=== PATIENT | male | born 1985 | race Caucasian/White ===

== ENCOUNTER 2016-06-05 14:55 | Emergency (ER) | payer OTHER ==
[~2016-06-05] VITALS: Ht 170.2 cm; Wt 81.6 kg
[~2016-06-05 14:55] MED LIST: ACULAR 0.5%5 ML OS; ALBUTEROL0.09 MG/A1 INH; POLYTRIM O200 GTT/BO OPH; PREDNISONE10 MG PO; TESSALON PERLE100 MG PO; ZOFRAN ODT4 M1 SL
--- NOTE | 2016-06-05 16:03 | ED GENERAL ADULT ---
History of Present Illness General Chief Complaint: Nausea, Vomiting, Diarrhea Stated Complaint: N/V/D, BALL Source: patient Exam Limitations: no limitations Vital Signs & Intake/Output Vital Signs & Intake/Output Vital Signs Date Time Temp Pulse Resp B/P Pulse O2 O2 Flow FiO2 Ox Delivery Rate 06/05 1607 85 120/65 06/05 1540 98 06/05 1458 97.5 87 18 136/80 99 Room Air Room Air ED Intake and Output 06/06 0000 06/05 1200 Intake Total Output Total Balance Patient 180 lb Weight Allergies Coded Allergies: morphine (Intermediate, GI DISTRESS 06/05/16) Reconcile Medications Ketorolac Tromethamine (Acular 0.5%) 0.5 % DROPS 1 GTT OS 4 TIMES/DAY PRN EYE PAIN Ondansetron (Zofran Odt) 4 MG TAB.RAPDIS 1 TAB SL TID PRN NAUSEA Polytrim (Polytrim Eye Drops) 10,000 UNIT-1 MG/ML DROPS 1 DROP OPH 4 TIMES/DAY CORNEAL ABRASION Triage Note: TRIAGE: 31 Y/O MALE PRESENTS C/O +N/+V/+D AND HEADACHE SICNE YESTERDAY. DENIES SICK CONTACTS. REPORTS POOR PO INTAKE. AFEBRILE IN TRIAGE. Triage Nurses Notes Reviewed? yes HPI: 31-year-old male ambulatory through triage to room 6 for evaluation of cough. He reports he has been coughing when he gets into work which then makes him nauseous and started to vomit. He denies any abdominal pain, fever, chills, chest pain or shortness of breath. He reports he is a smoker but every time he walks into work he has a coughing fit. He has not vomited today but vomited yesterday. He denies any pain at this time. He reports really what he wants is a work note. (YOLI NUÑEZ APRN) Past History Travel History Traveled to [place] past 21 day No Medical History Any Pertinent Medical History? 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 No (YOLI NUÑEZ APRN) Review of Systems Review of Systems Constitutional: Denies: no symptoms. EENTM: Denies: no symptoms. Respiratory: Reports: cough, sputum production. Cardiovascular: Denies: no symptoms. GI: Reports: nausea, vomiting. Genitourinary: Denies: no symptoms. Musculoskeletal: Denies: no symptoms. Skin: Denies: no symptoms. Neurological/Psychological: Denies: no symptoms. Hematologic/Endocrine: Denies: no symptoms. Immunologic/Allergic: Denies: no symptoms. (YOLI NUÑZE APRN) Physical Exam Physical Exam General Appearance: well developed/nourished, no apparent distress, alert, comfortable Head: atraumatic, normal appearance Eyes: Bilateral: normal appearance, PERRL, EOMI. Ears, Nose, Throat: normal pharynx, normal ENT inspection Neck: normal inspection, supple, full range of motion Respiratory: wheezing Cardiovascular: regular rate/rhythm Peripheral Pulses: 2+ radial (R), 2+ radial (L) Gastrointestinal: normal bowel sounds, soft, non-tender Back: normal inspection, normal range of motion Extremities: normal inspection, normal capillary refill, normal range of motion, no edema Neurologic/Psych: no motor/sensory deficits, awake, alert, oriented x 3, normal gait, normal mood/affect Skin: intact, normal color, warm/dry Core Measures ACS in differential dx? No CVA/TIA Diagnosis: No Severe Sepsis Present: No Septic Shock Present: No (YOLI NUÑEZ APRN) Progress Differential Diagnoses I considered the following diagnoses in my evaluation of the patient: URI, environmental allergy- ultimately the patient just wanted a work note. Plan of Care: Current Medications Sig/Karyn Start time Last Medication Dose Stop Time Status Admin Sodium Chloride 1,000 ML BOLUS ONE 06/05 1530 CAN (Normal Saline 0.9%) 06/05 1629 Laboratory Tests 06/05/16 1521: Lipase Cancelled, CBC w Diff Cancelled, WBC Cancelled, RBC Cancelled, Hgb Cancelled, Hct Cancelled, MCV Cancelled, MCH Cancelled, RDW Cancelled, Plt Count Cancelled, MPV Cancelled, PUBS MCHC Cancelled, Urine Color Cancelled, Urine Clarity Cancelled, Urine pH Cancelled, Ur Specific [place] Cancelled, Urine Protein Cancelled, Urine Ketones Cancelled, Urine Nitrite Cancelled, Urine Bilirubin Cancelled, Urine Urobilinogen Cancelled, Ur Leukocyte Esterase Cancelled, Ur Microscopic Cancelled, Urine Hemoglobin Cancelled, Urine Glucose Cancelled Initial ED EKG: none Comments: 1 DuoNeb given but the patient didn't even want that. He refused blood work and IV fluids. He will be discharged home with work note. He will follow up with [facility] or PCP- Dr. Tolliver. (YOLI NUÑEZ APRN) Departure Departure Time of Disposition: 1601 Disposition: HOME OR SELF CARE Condition: Stable Clinical Impression Primary Impression: Cough Secondary Impressions: Nausea Referrals: MERY TOLLIVER MD Additional Instructions: Please day out of work for the next 2 days. Wheeze follow-up with primary care doctor next week if you continue to have nausea, vomiting, cough. Please return to the emergency department for any worsening or concerning symptoms. please stop smoking. Departure Forms: Customer Survey General Discharge Information (YOLI NUÑEZ APRN) PA/MOTION PICTURE ACTOR Co-Sign Statement Statement: ED Attending supervision documentation- [] I saw and evaluated the patient. I have also reviewed all the pertinent lab results and diagnostic results. I agree with the findings and the plan of care as documented in the PA's/MOTION PICTURE ACTOR's documentation. X I have reviewed the ED Record and agree with the PA's/MOTION PICTURE ACTOR's documentation. [] Additions or exceptions (if any) to the PAs/MOTION PICTURE ACTOR's note and plan are summarized below: [] (KELSIE SANTOS MD) Critical Care Note Critical Care Note Critical Care Time: non-applicable (YOLI NUÑEZ APRN)
[2016-06-05 16:07] VITALS: BP 120/65
== END 2016-06-05 16:09 ==
LOC: ERH 14:55
DX: R05 Cough (principal); R11.0 Nausea
CPT/HCPCS: 1263

== ENCOUNTER 2016-06-23 11:53 | Emergency (ER) | payer OTHER ==
[~2016-06-23] VITALS: Ht 170.2 cm; Wt 81.6 kg
[2016-06-23 11:57] VITALS: BP 180/100
--- NOTE | 2016-06-23 12:00 | ED DYSPNEA/ASTHMA COMPLAINT ---
History of Present Illness General Chief Complaint: General Adult Stated Complaint: COUGH,BURNING SENSATION IN CHEST Source: patient, old records Exam Limitations: no limitations Vital Signs & Intake/Output Vital Signs & Intake/Output Vital Signs Date Time Temp Pulse Resp B/P B/P Pulse O2 O2 Flow FiO2 Mean Ox Delivery Rate 06/23 1242 95 Room Air 06/23 1220 96 06/23 1157 98.4 120 20 180/100 99 Room Air Allergies Coded Allergies: morphine (Intermediate, GI DISTRESS 06/05/16) Reconcile Medications Albuterol Sulfate (Proair Hfa) 90 MCG HFA.AER.AD 2 PUF INH Q4-6 PRN PRN SHORTENSS OF BREATH Azithromycin (Zithromax) 250 MG TABLET 1 DP PO AD BRONCHITIS 2 the first day followed by 1 for days 2-5 Triage Note: C/O COUGH, FATIGUE, CHEST BURNING X 3 WEEKS. Triage Nurses Notes Reviewed? yes Onset: Gradual Duration: week(s): (3), constant Timing: recent history Severity: mild, moderate Prior Episodes/Possible Cause: occasional episodes Associated Symptoms: cough HPI: 31-year-old male active smoker presents emergency room complaining of a nonproductive cough associated chest burning that is nonradiating and only present after coughing for the past 3 weeks. Patient states it was seen here on the symptoms began and was given a DuoNeb which improved. The patient denies fever chills night sweats.. He denies sputum production hemoptysis abdominal pain nausea vomiting diarrhea. No back pain recent immobility or travel or leg swelling. No modifying factors or associated symptoms otherwise. He has not sought care for the symptoms until today (ZAINA DILLARD) Past History Travel History Traveled to [place] past 21 day No Medical History Any Pertinent Medical History? 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 No (ZAINA DILLARD) Review of Systems Review of Systems Constitutional: Reports: see HPI. All Other Systems: Reviewed and Negative Comments Review of systems: See HPI, All other systems negative. Constitutional, no chills no fever, no malaise no weight loss HEENT: No visual changes no sore throat congestion, no ear pain Cardiovascular: chest pain , no palpitation , no orthopnea Skin: no rashes, no change in skin Respiratory: No dyspnea cough no sputum no hemoptysis GI: No nausea no vomiting, no diarrhea, no bloating/constipation : No dysuria Muscle skeletal: No joint pain no back pain, no neck pain, Neurologic: No numbness, no headache Psych: No stress Heme/endocrine: No bruising no bleeding Immunology: No lymphadenopathy (ZAINA DILLARD) Physical Exam Physical Exam General Appearance: well developed/nourished, no apparent distress, alert, awake Respiratory: normal breath sounds Comments: Well-developed well-nourished person in no acute distress Head/Face: Atraumatic, no maxillary/frontal sinus tenderness, no facial swelling Eyes: PERRL, EOMI, no conjunctival injection. No nystagmus Ear:External auditory canal and Tympanic membranes clear, no erythema, no FB. Nose: atraumatic.Normal inspection: No bleeding, no septal hematoma Throat: Moist mucous membranes.Pharynx normal. No pharyngeal erythema/exudate seen. No stridor/drooling or assymetry. No swelling or edema. Neck: Supple, no lymphadenopathy, FROM Back: Nontender, Full range of motion Cardiovascular: Regular rate and rhythms no murmurs rubs Respiratory: Chest nontender.There were no bony deformities, no asymmetry. No respiratory distress. Patient speaking in full complete sentences. Breath sounds clear to auscultation bilaterally: NO W/R/R Abdomen: Soft, nontender nondistended, no appreciable organomegaly. Normal bowel sounds. No rebound/guarding, Extremity: No edema, full range of motion of extremities Neuro: Alert oriented x3, motor sensory normal There were no obvious focal neurologic abnormalities. Skin: No appreciable rash on exposed skin, skin is warm and dry. Psych: Mood and affect is normal, memory and judgment is normal. Core Measures ACS in differential dx? No Severe Sepsis Present: No Septic Shock Present: No (ZAINA DILLARD) Progress Differential Diagnosis: asthma, bronchitis, costochondritis, musculoskeletal pain, pericarditis, pulmonary embolism, pneumonia, pneumothorax, VIRAL SYNDROME, ELECTROLYTE ABNORMALITY, MALIGNANCY Plan of Care: Orders Procedure Date/time Status AEROSOL (GEN) 06/23 1227 Complete EKG 06/23 1200 Active DuoNeb ordered the patient is refusing blood work chest x-ray, old records reviewed the patient had a similar response during his last visit here earlier this June. I attempted to reason with the patient given his symptoms have been persistent to rule out any other pathology causing these episodes. Patient is noted to be tachycardic, smoking cessation was discussed by considered pulmonary embolism in my differential however the burning chest discomfort is only present after coughing there is no pain with inspiration no hemoptysis no fever chills weight loss diaphoresis On repeat eval pt reports sx improved wtih duoneb Prescription for pro-air inhaler see pack provided, I discussed with him to return immediately if he changes his mind and wishes to be properly evaluated And information is provided follow-up with primary care (ZAINA DILLARD) Initial ED EKG: SINUS TACH AT 110, NO ACUTE st SEGMENT CHANGES NORMAL AXIS Prior EKG: unchanged (10/2007) (ZAINA DILLARD) Departure Departure Disposition: HOME OR SELF CARE Condition: Stable Clinical Impression Primary Impression: Bronchitis Referrals: FABIOLA POPE DO PATIENT HAS NO PRIMARY CARE DR (PCP/Family) Additional Instructions: Pro-air inhaler, Z-Vladimir as directed. These were sent to [facility]. Follow- up with primary care physician Dr. Noe morrison. Return to ER anytime sooner with any concerns Departure Forms: Customer Survey General Discharge Information Prescriptions: Current Visit Scripts Albuterol Sulfate (Proair Hfa) 2 PUF INH Q4-6 PRN PRN SHORTENSS OF BREATH #1 INHAL Azithromycin (Zithromax) 1 DP PO AD #6 TAB 2 the first day followed by 1 for days 2-5 (ZAINA DILLARD) PA/ASSISTANT MERCHANDISE MANAGER Co-Sign Statement Statement: ED Attending supervision documentation- [] I saw and evaluated the patient. I have also reviewed all the pertinent lab results and diagnostic results. I agree with the findings and the plan of care as documented in the PA's/ASSISTANT MERCHANDISE MANAGER's documentation. [X] I have reviewed the ED Record and agree with the PA's/ASSISTANT MERCHANDISE MANAGER's documentation. [] Additions or exceptions (if any) to the PAs/ASSISTANT MERCHANDISE MANAGER's note and plan are summarized below: [] (FERNANDO BOSWELL,RAMIRO Castellon) Critical Care Note Critical Care Note Critical Care Time: non-applicable (MADY MITCHELL,ZAINA)
[2016-06-23] MEDS ORDERED: PROAIR HFA8.5 GM INH (12:21)
[2016-06-23] MEDS ORDERED: ZITHROMAX250 M2 PO (12:21)
== END 2016-06-23 12:47 ==
LOC: ERH 11:53
DX: J40 Bronchitis, not specified as acute or chronic (principal); R07.89 Other chest pain; F17.210 Nicotine dependence, cigarettes, uncomplicated
CPT/HCPCS: 1263; 93005; 93010

== ENCOUNTER 2016-07-19 14:28 | Emergency (ER) | payer OTHER ==
[~2016-07-19] VITALS: Ht 170.2 cm; Wt 81.6 kg
[~2016-07-19 14:28] MED LIST changes: +PROAIR HFA8.5 GM INH; +ZITHROMAX250 M2 PO
[2016-07-19 14:37] VITALS: BP 141/93
--- NOTE | 2016-07-19 15:30 | ED THROAT/DENTAL COMPLAINT ---
History of Present Illness General Chief Complaint: Sore Throat, Dental Pain Stated Complaint: TOOTH ACHE Source: patient, old records Exam Limitations: no limitations Vital Signs & Intake/Output Vital Signs & Intake/Output Vital Signs Date Time Temp Pulse Resp B/P B/P Pulse O2 O2 Flow FiO2 Mean Ox Delivery Rate 07/19 1437 97.9 92 14 141/93 100 Room Air Allergies Coded Allergies: morphine (Intermediate, GI DISTRESS 06/05/16) Reconcile Medications Tylenol With Codeine (Tylenol With Codeine #3 Tablet) 300 MG-30 MG TABLET 1 TAB PO BIDP PRN pain Triage Note: 31 Y/O MALE C/O DENTAL PAIN RELATED TO BROKEN TOOTH; HAS TAKE 2 DOSES IBUPROPHEN (800MG EACH) WITH NO RELIEF. HAS APPT WITH DENTIST TUE. Triage Nurses Notes Reviewed? yes Onset: Gradual Duration: week(s): (1), constant Timing: recent history Injury Environment: home Severity: moderate Severity Numbers: 7 Modifying Factors: Worsens With: eating. Associated Symptoms: DENIES HPI: 31-year-old male presents to the ER complaining of left lower dental pain after he states she's had a cracked tooth for the past several years. He was seen by a dentist 14 days ago prescribed antibiotics pain medication which was helping however he ran out. He is scheduled to see the oral surgeon on Tuesday. However he states she's been taking Avapro with no improvement. Pain is worse with palpation eating. No modifying factors no facial swelling no fever no chills (ZAINA DILLARD) Past History Travel History Traveled to [place] past 21 day No Medical History Any Pertinent Medical History? 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 No (ZAINA DILLARD) Review of Systems Review of Systems Constitutional: Reports: see HPI. All Other Systems: Reviewed and Negative Comments Review of systems: See HPI, All other systems negative. Constitutional, no chills no fever, no malaise HEENT: No visual changes no sore throat no congestion, Cardiovascular: No chest pain , no palpitation Skin: no rashes, no change in skin Respiratory: No dyspnea no cough no sputum GI: No nausea no vomiting, no diarrhea, n Muscle skeletal: No joint pain,no back pain, no neck pain, Neurologic: No numbness no headache Psych: No stress Heme/endocrine: No bruising Immunology: No lymphadenopathy (ZAINA DILLARD) Physical Exam Physical Exam General Appearance: well developed/nourished, alert, awake Mouth/Throat: normal mouth inspection, pharynx normal, dental tenderness Comments: Well-developed well-nourished patient in no apparent distress. HEENT: Atraumatic, extraocular motion intact multiple carious teeth pharynx is within normal limits no facial swelling, no gingival abscess Neck: Supple, FROM Back: FROM Cardiovascular: Regular rate and rhythms no murmurs rubs or gallops, Respiratory: Chest nontender.There were no bony deformities, no asymmetry. No respiratory distress. Patient speaking in full complete sentences. Breath sounds clear to auscultation bilaterally: NO W/R/R Extremities: full range of motion Neuro: awake, alert, and oriented to person, place and time. There were no obvious focal neurologic abnormalities. Skin: Warm & dry;No appreciable rash on exposed skin Psych: Mood affect normal, normal memory normal judgment. Core Measures ACS in differential dx? No Severe Sepsis Present: No Septic Shock Present: No (ZAINA DILLARD) Progress Differential Diagnosis: carious tooth, epiglottitis, odontogenic abscess, kimberly- tonsillar abscess, stomatitis/gingivitis, strep pharyngitis, tooth fracture Plan of Care: I discussed with the patient at length all of their results. I had an extensive conversation regarding need for close follow up with their primary care physician this week as well as return precautions. I answered all of their questions, they feel comfortable with the plan and follow-up care. I discussed the medications that they will receive with the patient. I gave them signs and symptoms that could indicate an adverse reaction. I have advised them to limit their activities until they can see how they respond to the medication. (ZAINA DILLARD) Departure Departure Time of Disposition: 1553 Disposition: HOME OR SELF CARE Condition: Stable Clinical Impression Primary Impression: Pain, dental Referrals: PATIENT HAS NO PRIMARY CARE DR (PCP/Family) Additional Instructions: follow up with your oral surgeon as scheduled. tylenol with codeine for pain. ibuprofen 800mg every 8 hours. this was sent to [facility]. return with any concerns Departure Forms: Customer Survey General Discharge Information Prescriptions: Current Visit Scripts Tylenol With Codeine (Tylenol With Codeine #3 Tablet) 1 TAB PO BIDP PRN pain #10 TAB (ZAINA DILLARD) PA/FREIGHT CAR LOADER Co-Sign Statement Statement: ED Attending supervision documentation- [] I saw and evaluated the patient. I have also reviewed all the pertinent lab results and diagnostic results. I agree with the findings and the plan of care as documented in the PA's/FREIGHT CAR LOADER's documentation. [X] I have reviewed the ED Record and agree with the PA's/FREIGHT CAR LOADER's documentation. [] Additions or exceptions (if any) to the PAs/FREIGHT CAR LOADER's note and plan are summarized below: [] (MIRA CORDOVA DO
[2016-07-19] MEDS ORDERED: TYLENOL WITH C1 EACH PO (15:54)
[2016-07-20] MEDS ORDERED: IBUPROFEN800 M1 PO (04:41)
[2016-07-20] MEDS ORDERED: PERCOCET 5-3251 EACH PO (04:41)
[2016-07-20] MEDS ORDERED: AUGMENTIN 875-1 EACH PO (04:41)
== END 2016-07-19 16:10 ==
LOC: ERH 14:28
DX: K08.89 Other specified disorders of teeth and supporting structures (principal)

== ENCOUNTER 2016-07-20 04:28 | Emergency (ER) | payer OTHER ==
[~2016-07-20] VITALS: Ht 167.6 cm; Wt 77.1 kg
[~2016-07-20 04:28] MED LIST changes: +TYLENOL WITH C1 EACH PO
[2016-07-20 04:37] VITALS: BP 166/88
--- NOTE | 2016-07-20 04:37 | ED THROAT/DENTAL COMPLAINT ---
History of Present Illness General Chief Complaint: Sore Throat, Dental Pain Stated Complaint: SEEN EARLIER PT C/O "EXCRUCIATING"DENTAL PAIN Source: patient Exam Limitations: no limitations Vital Signs & Intake/Output Vital Signs & Intake/Output Vital Signs Date Time Temp Pulse Resp B/P B/P Pulse O2 O2 Flow FiO2 Mean Ox Delivery Rate 07/20 0437 96.4 85 18 166/88 99 Room Air Allergies Coded Allergies: morphine (Intermediate, GI DISTRESS 06/05/16) Reconcile Medications Amoxicillin/Potassium Clav (Augmentin 875-125 Tablet) 875 MG-125 MG TABLET 1 TAB PO BID DENTAL ABSCESS Ibuprofen 800 MG TABLET 1 TAB PO TID PRN PAIN Oxycodone HCl/Acetaminophen (Percocet 5-325 MG Tablet) 5 MG-325 MG TABLET 1 TAB PO 4XDP PRN PAIN SIX...[id number] Tylenol With Codeine (Tylenol With Codeine #3 Tablet) 300 MG-30 MG TABLET 1 TAB PO BIDP PRN pain Triage Nurses Notes Reviewed? yes Onset: Gradual Duration: day(s): Timing: recent history Injury Environment: home Severity: moderate Modifying Factors: Improves With: medication, rest. Associated Symptoms: left lower dental pain for several months, now worse. HPI: 31-year-old gentleman with a history of recurrent left lower dental pain and infections, presents with worsening dental pain. He states that he was seen here yesterday, was given Tylenol with codeine. He states during the night the pain got worse. He states, "I think it's infected now. The gum feels swollen. " He states that he has a broken tooth that often gets infected. He has no fever chills problems eating or breathing. He is otherwise well. Past History Travel History Traveled to [place] past 21 day No Medical History Any Pertinent Medical History? 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 No Review of Systems Review of Systems Constitutional: Reports: no symptoms. EENTM: Reports: no symptoms. Respiratory: Reports: no symptoms. Cardiovascular: Reports: no symptoms. GI: Reports: no symptoms. Genitourinary: Reports: no symptoms. Musculoskeletal: Reports: no symptoms. Skin: Reports: no symptoms. Neurological/Psychological: Reports: no symptoms. Hematologic/Endocrine: Reports: no symptoms. Immunologic/Allergic: Reports: no symptoms. All Other Systems: Reviewed and Negative Physical Exam Physical Exam General Appearance: well developed/nourished, mild distress Head: atraumatic Eyes: Bilateral: normal appearance. Nose: normal inspection Mouth/Throat: left lower incisor is broken. There is mild edema and tenderness around the gum. No leroy discharge. Neck: normal inspection Back: normal inspection Neurologic/Psych: no motor/sensory deficits Core Measures ACS in differential dx? No Severe Sepsis Present: No Septic Shock Present: No Progress Differential Diagnosis: dental infection versus gingivitis versus toothache Plan of Care: I prescribed him Augmentin and Percocet. He has follow-up with a dentist later this week. Departure Departure Disposition: HOME OR SELF CARE Condition: Stable Clinical Impression Primary Impression: Dental infection Referrals: PATIENT HAS NO PRIMARY CARE DR (PCP/Family) Departure Forms: Customer Survey General Discharge Information Prescriptions: Current Visit Scripts Amoxicillin/Potassium Clav (Augmentin 875-125 Tablet) 1 TAB PO BID #20 TAB Oxycodone HCl/Acetaminophen (Percocet 5-325 MG Tablet) 1 TAB PO 4XDP PRN PAIN #6 TAB SIX...[id number] Ibuprofen 1 TAB PO TID PRN PAIN #30 TAB
[2016-07-20] MEDS ORDERED: AUGMENTIN 875-1 EACH PO (04:41)
[2016-07-20] MEDS ORDERED: IBUPROFEN800 M1 PO (04:41)
[2016-07-20] MEDS ORDERED: PERCOCET 5-3251 EACH PO (04:41)
== END 2016-07-20 04:49 ==
LOC: ERH 04:28
DX: K04.7 Periapical abscess without sinus (principal)

== ENCOUNTER 2017-03-14 08:59 | Emergency (ER) | payer SELFPAY ==
[~2017-03-14] VITALS: Ht 170.2 cm; Wt 77.1 kg
[~2017-03-14 08:59] MED LIST changes: +AUGMENTIN 875-1 EACH PO; +IBUPROFEN800 M1 PO; +PERCOCET 5-3251 EACH PO
--- NOTE | 2017-03-14 10:07 | ED CARDIAC/CP/PALPITATIONS ---
History of Present Illness General Chief Complaint: General Adult Stated Complaint: "I FEEL LIKE I HAVE A BURNING IN MY CHEST" Source: patient Exam Limitations: no limitations Vital Signs & Intake/Output Vital Signs & Intake/Output Vital Signs Date Time Temp Pulse Resp B/P B/P Pulse O2 O2 Flow FiO2 Mean Ox Delivery Rate 03/14 1032 97 Room Air 03/14 0906 96.0 104 18 155/91 96 Room Air Allergies Coded Allergies: morphine (Intermediate, GI DISTRESS 06/05/16) Reconcile Medications Azithromycin (Zithromax) 250 MG TABLET 1 DP PO AD PNA 2 the first day followed by 1 for days 2-5 Benzonatate (Tessalon Perle) 100 MG CAPSULE 1 CAP PO TID PRN COUGH Triage Note: 31 Y/O MALE C/O "BURNING" SENSATION IN CHEST; ONSET THIS AM WHILE WATCHING TV. DENIES OTHER COMPLAINTS HOWEVER ALSO REPORTS APPROX 1 WEEK HISTORY COUGHING AND CONGESTION. STATES COUGH IS NON PRODUCTIVE. EKG IN PROGRESS Triage Nurses Notes Reviewed? yes Onset: Abrupt Duration: week(s): (3) Timing: recent history Location: central Activities at Onset: none Associated Symptoms: COUGH, FATIGUE, WEAKNESS HPI: 31 year old male presents with few week history of cough, fatigue and weakness for the past 3 weeks. For the past few days had had a constant chest pain, reproducible. No change with breathing or position changes. He has only used over the counter agents. Patient reports nausea from the mucus. No abdominal pain, vomiting or diarrhea. He did not receive the flu vaccine. Patient reports normal PO intake but reports headache. Past History Travel History Traveled to [place] past 21 day No Medical History Any Pertinent Medical History? 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 No Review of Systems Review of Systems Constitutional: Reports: chills, fever. EENTM: Reports: nasal congestion, throat pain. Respiratory: Reports: cough, short of breath, stridor. Cardiovascular: Reports: chest pain. GI: Denies: abdominal pain. Genitourinary: Denies: discharge. Musculoskeletal: Reports: no symptoms. Skin: Reports: no symptoms. Neurological/Psychological: Reports: no symptoms. Hematologic/Endocrine: Denies: bruising, bleeding, polyuria, polydipsia. Immunologic/Allergic: Reports: no symptoms. All Other Systems: Reviewed and Negative Physical Exam Physical Exam General Appearance: well developed/nourished, alert, awake Head: atraumatic, normal appearance Eyes: Bilateral: normal appearance, PERRL, EOMI. Ears, Nose, Throat: normal ENT inspection, hearing grossly normal, pharyngeal erythema Neck: normal inspection, supple, full range of motion Respiratory: normal breath sounds, no respiratory distress, REPRODUCIBLE CHEST PAIN, MOST PRONOUCNCED UNDER STERNUM Cardiovascular: regular rate/rhythm Peripheral Pulses: 2+ radial (R), 2+ radial (L) Gastrointestinal: normal bowel sounds, soft, non-tender Back: normal inspection, normal range of motion Extremities: normal inspection, normal capillary refill, normal range of motion, no edema Neurologic/Psych: no motor/sensory deficits, awake, alert, oriented x 3 Skin: intact, normal color, warm/dry Core Measures ACS in differential dx? Yes CVA/TIA Diagnosis No Sepsis Present: No Sepsis Focused Exam Completed? No Progress Differential Diagnosis: AMI, myocarditis, pericarditis, pneumonia, pulmonary embolism, PUD/GERD, COSTOCHONDRITIS Plan of Care: Orders Procedure Date/time Status RAPID VIRAL INFLUENZA A 03/14 1051 Complete THROAT CULTURE W/QUICK STREP 03/14 1051 Active EKG 03/14 0901 Active Microbiology 03/14 1103 NASOPHARYN: Influenza Virus A & B Rapid Smear - COMP Diagnostic Imaging: Viewed by Me: Radiology Read. Discussed w/RAD: Radiology Read. Initial ED EKG: NSR Comments: PATIENT: NELLY GUZMAN PRESENT AGE: 31 PATIENT ACCOUNT NO: [id number] : 84 LOCATION: [facility] ORDERING PHYSICIAN: Yolanda Mclean MD SERVICE DATE: 03/14/17-105 EXAM TYPE: RAD - XRY-CHEST XRAY, TWO VIEWS EXAMINATION: XR CHEST CLINICAL INFORMATION: Chest pain, shortness of breath COMPARISON: None TECHNIQUE: 2 views of the chest were obtained. FINDINGS: Heart size is normal. Mediastinal contours are normal. Lungs are clear without consolidation, effusion or pneumothorax. Visualized osseous structures appear intact. IMPRESSION: No acute cardiopulmonary process DICTATED BY: Yesica Sibley MD DATE/TIME DICTATED:03/14/171118 COMMUNICATION COORDINATOR:MARGIE DATE/TIME TRANSCRIBED:03/14/171118 CONFIDENTIAL, DO NOT COPY WITHOUT APPROPRIATE AUTHORIZATION. <Electronically signed in Other Vendor System> SIGNED BY: Yesica Sibley MD 03/14/17 1124 Departure Departure Time of Disposition: 1125 Disposition: HOME OR SELF CARE Condition: Stable Clinical Impression Primary Impression: URI (upper respiratory infection) Referrals: Maria Ines BOSWELL,Gunnar Eagle (PCP/Family) Additional Instructions: TAKE THE ZPACK, TESSALON PEARLES AND IBUPROFEN DIRECTED FOLLOW UP WITH YOUR DOCTOR IN THE OFFICE STOP SMOKING AND DISCUSS QUITTING SMOKING WITH YOUR DOCTOR RETURN TO THE ER FOR ANY CHANGING OR WORSENING SYMPTOMS Departure Forms: Customer Survey General Discharge Information Prescriptions: Current Visit Scripts Azithromycin (Zithromax) 1 DP PO AD #6 TAB 2 the first day followed by 1 for days 2-5 Benzonatate (Tessalon Perle) 1 CAP PO TID PRN COUGH #30 CAP Critical Care Note Critical Care Note Critical Care Time: non-applicable
--- NOTE | 2017-03-14 11:24 | RADIOLOGY REPORT ---
EXAMINATION: XR CHEST CLINICAL INFORMATION: Chest pain, shortness of breath COMPARISON: None TECHNIQUE: 2 views of the chest were obtained. FINDINGS: Heart size is normal. Mediastinal contours are normal. Lungs are clear without consolidation, effusion or pneumothorax. Visualized osseous structures appear intact. IMPRESSION: No acute cardiopulmonary process
[2017-03-14] MEDS ORDERED: IBUPROFEN800 M1 PO (11:38)
[2017-03-14] MEDS ORDERED: TESSALON PERLE100 M1 PO ×2 (11:38→11:42)
[2017-03-14] MEDS ORDERED: ZITHROMAX250 M2 PO ×2 (11:38→11:42)
[2017-03-14 11:44] VITALS: BP 132/84
== END 2017-03-14 12:08 ==
LOC: ERH 08:59
DX: J06.9 Acute upper respiratory infection, unspecified (principal); R07.9 Chest pain, unspecified; F17.210 Nicotine dependence, cigarettes, uncomplicated
CPT/HCPCS: 71046; 87804; 87804-59; 93005; 93010

== ENCOUNTER 2017-03-15 06:01 | Emergency (ER) | payer SELFPAY ==
[~2017-03-15] VITALS: Ht 170.2 cm; Wt 79.4 kg
[~2017-03-15 06:01] MED LIST changes: +TESSALON PERLE100 M1 PO
--- NOTE | 2017-03-15 07:22 | ED PSYCHIATRIC COMPLAINT ---
History of Present Illness General Chief Complaint: ETOH/Drug Related Complaint Stated Complaint: PT REQUESTING ETOH DETOX " I DON'T WANNA " -SI Source: patient, old records Exam Limitations: no limitations Vital Signs & Intake/Output Vital Signs & Intake/Output Vital Signs Date Time Temp Pulse Resp B/P B/P Pulse O2 O2 Flow FiO2 Mean Ox Delivery Rate 03/15 0735 98.0 91 18 158/95 97 Room Air 03/15 0646 97.5 102 18 137/95 96 Room Air Allergies Coded Allergies: morphine (Intermediate, GI DISTRESS 06/05/16) Reconcile Medications Azithromycin (Zithromax) 250 MG TABLET 1 DP PO AD PNA 2 the first day followed by 1 for days 2-5 Benzonatate (Tessalon Perle) 100 MG CAPSULE 1 CAP PO TID PRN COUGH Triage Note: PT TO ED REQUESTING ETOH DETOX. STATES DRINKS 2 PINTS OF TEQUILA DAILY. HAS BEEN DRINKING AT THIS RATE FOR THE LAST 6 MONTHS, BUT HAS BEEN DRINKING DAILY FOR THE LAST 2 YRS. LAST DRINK WAS A BEER JUST PRIOR TO ARRIVAL. DENIES DRUGS. DENIES SI/HI. HAD COLD SWEATS WHEN HE STOPPED DRINKING WHILE IN [facility] YEARS AGO. Triage Nurses Notes Reviewed? yes Onset: DRINKING MANY YEARS Duration: waxing and waning Timing: recent history Severity: moderate Associated Symptoms: RECENT CHEST PAIN HPI: 31 year old male presents requesting alcohol detox, states that he doesn't want to from alcoholism. No SI/HI. He currently drinks 1-2 pints per day. Last drink was this morning, and states that he has started drinking in the mornings. HIstory [facility] [place]. NO history of DT's but states that he gets shaky and his heart races. No illicit drug use for the past 6 years. He currently follows up with [facility] for IOP which is through his probation program but denies receiving alcohol counselling. Past History Travel History Traveled to [place] past 21 day No Medical History Any Pertinent Medical History? 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 No Review of Systems Review of Systems Constitutional: Denies: chills, fever. EENTM: Reports: no symptoms. Respiratory: Reports: cough. Cardiovascular: Reports: chest pain, palpitations. GI: Reports: no symptoms. Genitourinary: Reports: no symptoms. Musculoskeletal: Reports: no symptoms. Skin: Reports: no symptoms. Neurological/Psychological: Reports: ataxia, depressed. Hematologic/Endocrine: Denies: bruising, bleeding, polyuria, polydipsia. Immunologic/Allergic: Reports: no symptoms. All Other Systems: Reviewed and Negative Physical Exam Physical Exam General Appearance: well developed/nourished, mild distress Head: atraumatic Eyes: Bilateral: PERRL, EOMI. Ears, Nose, Throat: normal pharynx, normal ENT inspection, hearing grossly normal Neck: normal inspection, supple Respiratory: normal breath sounds Cardiovascular: regular rate/rhythm Gastrointestinal: soft, non-tender Extremities: normal range of motion Neurological/Psychiatric: no motor/sensory deficits, awake, alert, calm Appearance/Memory/Insight: impaired insight, neat Behavoir/Eye Contact/Speech: cooperative, normal speech, good eye contact Thoughts/Hallucinations: no apparent hallucination Skin: intact, normal color, warm/dry SAD PERSONS Done? patient not suicidal Progress Differential Diagnosis: ALCOHOL INTOCIATION, ALCOHOL DEPENDENCE Plan of Care: Orders Procedure Date/time Status Regular Diet 03/15 L Active CASE MANAGEMENT CONSULT 03/15 730 Active CIWA 03/15 605 Active URINE DRUGS OF ABUSE 03/15 605 Active ETHANOL 03/15 605 Complete COMPREHENSIVE METABOLIC PANEL 03/15 605 Complete CBC WITHOUT DIFFERENTIAL 03/15 605 Complete Laboratory Tests 03/15/17 0754: Methadone Screen Pending, Barbiturate Screen Pending, Ur Phencyclidine Scrn Pending, Amphetamines Screen Pending, U Benzodiazepines Scrn Pending, Urine Cocaine Screen Pending, Urine Cannabis Screen Pending 03/15/17 0710: Anion Gap 16, Estimated GFR > 60, BUN/Creatinine Ratio 13.8, Glucose 103 H, Calcium 9.8, Total Bilirubin 1.0, AST 110 H, ALT 89 H, Alkaline Phosphatase 71 , Total Protein 8.5 H, Albumin 5.1 H, Globulin 3.4, Albumin/Globulin Ratio 1.5 , CBC w Diff NO MAN DIFF REQ, RBC 5.28, MCV 89.4, MCH 30.7, RDW 13.6, MPV 8.1, Gran % 50.2, Lymphocytes % 35.1, Monocytes % 10.6 H, Eosinophils % 3.6, Basophils % 0.5, Absolute Granulocytes 2.6, Absolute Lymphocytes 1.8, Absolute Monocytes 0.5, Absolute Eosinophils 0.2, Absolute Basophils 0, PUBS MCHC 34.4, Serum Alcohol 139.0 I explained process of evalution for detox, patient agrees. labs, ciwa score monitoring. 8:15 AM PATIENT NOW STATES THAT HE WANTS TO GO HOME AND WILL FOLLOW UP WITH A LIST OF OUTPATIENT DETOX FACILITIES. NO SI/HI. I ENCOURAGED HIM TO SEE REGISTRATION FOR APPLICATION FOR STATE INSURANCE. HE STATES HE FEELS FINE AND WANTS TO GO HOME. Departure Departure Time of Disposition: 815 Disposition: HOME OR SELF CARE Condition: Stable Clinical Impression Primary Impression: Alcohol dependence Referrals: Maria Ines BOSWELL,Gunnar Eagle (PCP/Family) Additional Instructions: FOLLOW UP WITH THE LIST OF OUTPATIENT ALCOHOL DETOX FACILITIES REAPPLY FOR YOUR STATE INSURANCE Departure Forms: Customer Survey General Discharge Information
[2017-03-15 07:28] LABS: ABSOLUTE BASOPHIL COUNT 0 /CUMM (0.0-0.2); ABSOLUTE EOSINOPHIL COUNT 0.2 /CUMM (0.0-0.7); ABSOLUTE GRANULOCYTE CT 2.6 /CUMM (1.4-6.5); ABSOLUTE LYMPH COUNT 1.8 /CUMM (1.2-3.4); ABSOLUTE MONOCYTE COUNT 0.5 /CUMM (0.10-0.60); BASOPHIL % 0.5 % (0.0-2.0); EOSINOPHIL % 3.6 % (0-5); GRANULOCYTE % 50.2 % (42.2-75.2); HEMATOCRIT 47.2 % (42-52); MEAN CORPUSCULAR HGB 30.7 PG (27.0-31.0); MEAN CORPUSCULAR HGB CONC 34.4 G/DL (33.0-37.0); MEAN CORPUSCULAR VOLUME 89.4 FL (80.0-94.0); MEAN PLATELET VOLUME 8.1 FL (7.4-10.4); PLATELET COUNT 226 /CUMM (130-400); RBC DISTRIBUTION WIDTH 13.6 % (11.5-14.5); RED BLOOD CELL CT 5.28 /CUMM (4.70-6.10); WHITE BLOOD CELL COUNT 5.1 /CUMM (4.8-10.8)
[2017-03-15 07:35] VITALS: BP 158/95
== END 2017-03-15 08:23 ==
LOC: ERH 06:01
PROVIDERS: Emergency Medicine
DX: F10.20 Alcohol dependence, uncomplicated (principal)
CPT/HCPCS: 80307; G0480